=== PATIENT | female | born 1995 | race Caucasian/White ===

== ENCOUNTER 2016-08-21 04:43 | Inpatient (IN) | payer MEDICAID ==
[~2016-08-21] VITALS: Ht 165.1 cm; Wt 73.1 kg
--- NOTE | ~2016-08-21 | OR ---
PATIENT'S NAME: BETHANY PERERA [facility] AGE: 21 Y [address] ROOM: [place] [id number] LOCATION: GOBS ADMIT DATE: 08/21/2016 OR/Procedure Report DISCHARGE DATE: FAMILY PHYSICIAN: PHYSICIAN, NO ATTENDING PHYSICIAN: Lyn San SURGEON: Alan Villavicencio MD ASSET PROTECTION ASSISTANT: DATE OF PROCEDURE: 08/21/2016 PREOPERATIVE DIAGNOSES: 1. Intrauterine at 39 weeks and 2 days. 2. Active labor. 3. Tobacco use. 4. Marijuana use. POSTOPERATIVE DIAGNOSES: 1. Intrauterine at 39 weeks and 2 days. 2. Active labor. 3. Tobacco use. 4. Marijuana use. PROCEDURE PERFORMED: Spontaneous vaginal delivery over intact perineum. ANESTHESIA: Epidural. FINDINGS: Viable female infant with Apgars of 8 and 9 and weight pending. Placenta intact with three-vessel cord. No cervical, vaginal, or perineal lacerations. ESTIMATED BLOOD LOSS: 300 mL. COMPLICATIONS: None. INDICATIONS: The patient is a 21-year-old G1 with intrauterine at 39 weeks and 1 day, who presented to Labor and Delivery in active labor. She progressed to 9 cm and had spontaneous rupture of membranes with clear fluid. She then progressed to complete and started maternal expulsive efforts. DESCRIPTION OF PROCEDURE: The patient was placed in dorsal lithotomy position. With maternal expulsive efforts, the head was delivered in the DHRUV position. The anterior shoulder then delivered followed by the remainder of the fetus, and was placed on the mother's abdomen. The cord was clamped and cut. The placenta then delivered spontaneously intact with three-vessel cord. No cervical, vaginal, or perineal lacerations were noted. Instrument, sponge, and needle counts were correct at the conclusion PATIENT'S NAME: BETHANY PERERA [facility] AGE: 21 Y [address] ROOM: [place] [address] LOCATION: [facility] ADMIT DATE: 08/21/2016 OR/Procedure Report DISCHARGE DATE: FAMILY PHYSICIAN: PHYSICIAN, NO ATTENDING PHYSICIAN: Lyn San of the case. DISPOSITION: Mom stable. Baby in room with mom. MD GOLD MARTÍNEZ/sasha /[id number] d: 08/21/16 1426 t: 08/23/16 0949, OPERATIVE SUMMARY
[~2016-08-21 04:43] MED LIST: PRENATAL 1+1)(P1 TAB PO
[2016-08-21 06:10] LABS: BARBITURATE NEGATIVE (NEGATIVE)
[2016-08-21 06:20] LABS: AMPHETAMINE NEGATIVE (NEGATIVE); COCAINE NEGATIVE (NEGATIVE); OPIATES NEGATIVE (NEGATIVE)
[2016-08-21 07:04] LABS: BASOPHIL # 0.1 K/uL (0.0-0.2); BASOPHIL % 0.4 %; EOSINOPHIL # 0.1 K/uL (0.0-0.5); EOSINOPHIL % 0.5 %; HEMATOCRIT 44.8 % (33.0-46.0); HEMOGLOBIN 15.2 g/dL (11.0-15.0); IMMATURE GRANULOCYTE # 0.1 K/uL (0.0-0.3); IMMATURE GRANULOCYTE % 0.7 %; LYMPHOCYTE % 15.2 %; MCH 31.4 pg (27.0-34.0); MCHC 33.9 gm/dL (32.0-36.5); MCV 92.6 fl (83.0-98.0); MONOCYTE # 0.7 K/uL (0.0-1.0); MONOCYTE % 5.5 %; MPV 11.9 fl (9.4-12.4); NEUTROPHIL # (ANC) 10.2 K/uL (1.8-7.8); NEUTROPHIL % 77.7 %; NRBC % 0 /100WBC (0-0.00); PLATELET COUNT 179 K/uL (150-450); RBC 4.84 M/uL (3.50-5.00); RDW-CV 14.7 % (11.9-14.6); WBC 13.2 K/uL (4.0-11.0)
--- NOTE | 2016-08-21 17:49 | NUR ---
VSS. UP TO BR, TOLERATED SHOWER WELL. SM VOID PER PT, MANUALLY EXPRESSED LARGE AMT OF URINE PRIOR TO UP TO BR. SALINE LOCK INTACT TO LT HAND MOTRIN AT 1700
[2016-08-22 05:39] LABS: BASOPHIL % 0.3 %; EOSINOPHIL # 0.1 K/uL (0.0-0.5); EOSINOPHIL % 0.9 %; HEMOGLOBIN 12.4 g/dL (11.0-15.0); IMMATURE GRANULOCYTE % 0.3 %; LYMPHOCYTE # 2.8 K/uL (0.8-4.0); LYMPHOCYTE % 20.3 %; MCHC 34.4 gm/dL (32.0-36.5); MONOCYTE # 1.1 K/uL (0.0-1.0); MONOCYTE % 7.9 %; MPV 12.4 fl (9.4-12.4); NEUTROPHIL # (ANC) 9.8 K/uL (1.8-7.8); NEUTROPHIL % 70.3 %; NRBC % 0 /100WBC (0-0.00); RBC 3.87 M/uL (3.50-5.00); RDW-CV 14.9 % (11.9-14.6)
[2016-08-22 05:40] LABS: PLATELET COUNT 133 K/uL (150-450)
--- NOTE | 2016-08-23 04:42 | NUR ---
Last VS: T:98.2 P:68 R: 20 BP: 120/70 Pain ratin Last pain med: MOTRIN Medicated at: 0230 Effective: YES Breasts: SOFT, Nipples: Fundus:FIRM,MIDLINE ,1 BELOW Lochia: SM,RUBRA Epis/Perineum: NONE, , Voiding well: Y Significant event: PT WORKS WITH BABY VERY WELL. PLANS FOR DISMISSAL TODAY.
[2016-08-23] MEDS ORDERED: MOTRIN800 MG PO (09:55)
[2016-08-23] MEDS ORDERED: SURFAK240 MG PO (09:55)
[2016-08-23] MEDS ORDERED: NORCO 5-325 TA1 EACH PO (09:55)
--- NOTE | 2016-08-23 13:25 | NUR ---
Received consult due to positive drug screen for marijuana. Met with patient and laci Fernandez at bedside. Introduced myself and explained my role with the care management department. Patient states she has all the necessary items for baby at home. She is set up with [facility] already. Informed her that she needs to contact Medicaid and inform them that baby was born. I also gave her the voucher to the [facility] and list of community resources. We spent approximately 10 mins discussing signs and symptoms of post depression as patient has a history of anxiety and depression. She states she has not been on meds for at least 6 years and she does not plan on going back on meds. I addressed concerns about her THC use. She indicates that she uses marijuana to help control her anxiety. She states that she will not be using it in the home around the baby. I discussed with her concerns of using marijuana, being impaired from use, and then not being able to care adequately for baby. She indicates that this will not be a problem. We discussed other ways to manage her anxiety and having a good support network. She states she has a good support with her mom, sister in law, and 2 or 3 friends. She states the FOB has been to the hospital to see Jim and she thinks that he is going to be more involved in her life. 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 She states either the FOB of her friends will watch baby when she is working. I placed a call to [employer] regarding her drug screen. Likely discharge to home today.
--- NOTE | 2016-08-23 17:45 | NUR ---
08/23/16: 1745: Ready to go home. Vss. Breafeeds well. Video's done. Refuses shower,waiting to take one @ home. Demonstrates well. Has nipple cream.
== END 2016-08-23 19:18 | disposition disaster alternative care site (69) | DRG 775 ==
LOC: GOBS 04:43
PROVIDERS: Obstetrics & Gynecology; ADMIT Obstetrics & Gynecology
DX: O99.334 Smoking (tobacco) complicating childbirth (principal); F17.200 Nicotine dependence, unspecified, uncomplicated; O99.324 Drug use complicating childbirth; F12.90 Cannabis use, unspecified, uncomplicated; Z3A.39 39 weeks gestation of pregnancy; Z37.0 Single live birth
CPT/HCPCS: J2001; J2590; J3010; J7120